=== PATIENT | female | born 1955 | race African-American/Black ===

== ENCOUNTER 2021-03-01 04:20 | Day surgery (SDC) | payer OTHER ==
[2021-02-26 08:25] VITALS: BMI 33.1
[2021-03-01] MEDS ORDERED: METHYLENE BLUE 50 MG/10 ML AMPUL ONE (07:13)
[2021-03-01] MEDS ORDERED: BUPIVACAINE HCL/PF 0.5% (5MG/ML) 10 ML VIAL ONE (07:14)
[2021-03-01] MEDS ORDERED: LIDOCAINE HCL 1%, 10 MG/ML (20ML VIAL) ONE (07:14)
[2021-03-01] MEDS ORDERED: fentaNYL CITRATE 250 MCG/5 ML VIAL ONE (07:38)
[2021-03-01] MEDS ORDERED: SUCCINYLCHOLINE CHLORIDE 200 MG/10 ML SYRINGE ONE (07:39)
[2021-03-01] MEDS ORDERED: MIDAZOLAM HCL 2 MG/2 ML SINGLE DOSE VIAL ONE (07:39)
[2021-03-01] MEDS ORDERED: ROCURONIUM BROMIDE 50 MG/5 ML SYRINGE ONE (07:39)
[2021-03-01] MEDS ORDERED: PROPOFOL 20 ML ONE ×3 (07:39)
[2021-03-01] MEDS ORDERED: BUPIVACAINE HCL/PF 0.25% (2.5MG/ML) 10 ML VIAL ONE (08:22)
[2021-03-01] MEDS ORDERED: ceFAZolin SODIUM 1 GM VIAL IVPB ONE (08:30)
[2021-03-01] MEDS ORDERED: oxyCODONE HCL 5 MG TABLET PO PRN (08:54)
[2021-03-01] MEDS ORDERED: BUPIVACAINE HCL/PF 0.25% (2.5MG/ML) 10 ML VIAL IJ ONE ×2 (08:54→11:10)
[2021-03-01] MEDS ORDERED: ONDANSETRON 4 MG/2 ML VIAL IVPUSH PRN (08:54)
[2021-03-01] MEDS ORDERED: LACTATED RINGERS SOLUTION 1,000 ML IV SCH (09:00)
[2021-03-01] MEDS ORDERED: NEOSTIGMINE METHYLSULFATE 0.5 MG/ML - 10 ML MDV ONE (10:56)
[2021-03-01] MEDS ORDERED: oxyCODONE HCL 5 MG TABLET ONE (15:10)
[2021-03-01] MEDS ORDERED: oxyCODONE HCL 5 MG TABLET PO ONE (15:13)
[2021-03-01 16:12] VITALS: BP 131/77; PULSE 88; TEMP 97.4
== END 2021-03-01 16:13 | disposition home or self-care (01) ==
LOC: JASU-SURG 04:20
PROVIDERS: ATTEND Plastic Surgery
PROC: 0HBV0ZZ Excision of Bilateral Breast, Open Approach (ICD-10-PCS; principal; 2021-03-01 08:00)
DX: N62 Hypertrophy of breast (principal); M54.2 Cervicalgia; M54.89 Other dorsalgia; M25.512 Pain in left shoulder; M25.511 Pain in right shoulder
CPT/HCPCS: 88305-TC; 94760; Q9968